=== PATIENT | male | born 1960 | race Caucasian/White ===

== ENCOUNTER 2024-03-23 13:25 | Emergency (ER) | payer MEDICARE, OTHER ==
[~2024-03-23] VITALS: Ht 185.4 cm; Wt 120.3 kg
[2024-03-23] MEDS ORDERED: MELOXICAM7.5 MG PO (15:15)
[2024-03-23] MEDS ORDERED: LEVOTHYROXINE50 MCG PO (15:15)
[2024-03-23] MEDS ORDERED: DIPHTH,PERTUSS(ACELL),TET VAC 0.5 ML SYRINGE IM ONE (15:45)
[2024-03-23 17:14] VITALS: BP 108/68
== END 2024-03-23 17:14 | disposition home or self-care (01) ==
LOC: ED 13:25
DX: S61.212A Laceration without foreign body of right middle finger without damage to nail, initial encounter (principal); E03.9 Hypothyroidism, unspecified; Z23 Encounter for immunization; W26.8XXA Contact with other sharp object(s), not elsewhere classified, initial encounter
CPT/HCPCS: 12001; 99282

== ENCOUNTER 2024-06-11 07:26 | Day surgery (SDC) | payer MEDICARE, OTHER ==
[~2024-06-11 07:26] MED LIST: CEFAZOLIN SODIUM 2 GM/20 ML SYR IV SCH; IBLOOD GLUCOSE TEST STRIP 1 EA TEST VI PRN; IMITREX25 MG PO; LACTATED RINGER'S 1,000 ML IV SCH; LEVETIRACETAM500 M1 PO; LEVOTHYROXINE50 MCG PO; LIDOCAINE HCL 1% 5 ML SDV INJ ONE; MELOXICAM7.5 MG PO; MIDAZOLAM HCL 5 MG/5 ML VIAL IV PRN; NADOLOL40 MG PO; fentaNYL citrate 100 MCG/2 ML VIAL IV PRN
[2024-06-11 07:45] VITALS: BP 109/74
[2024-06-11] MEDS ORDERED: MIDAZOLAM HCL 5 MG/5 ML VIAL ONE (08:42)
[2024-06-11] MEDS ORDERED: fentaNYL citrate 100 MCG/2 ML VIAL ONE (08:43)
--- NOTE | 2024-06-11 10:10 | NUR ---
06/11/24 1010 Sheets,Blanca 0939 PT ARRIVED TO PACU ON 3L VIA NC, PT ASLEEP AND WAKES EASILY. PT REORIENTED TO PACU AND FALLS BACK TO SLEEP. SMALL AMOUNT OF SNORING. 0945 PT PASSING LARGE AMOUNT OF GAS. 1005 PT WAKES AND ROLLED TO BACK, PT SIPPING SODA PER REQUEST.
[2024-06-11 10:17] VITALS: BP 114/80
--- NOTE | 2024-06-11 16:06 | OR ---
[facility] [address], [place] [address] Signed DATE OF OPERATION: 06/11/2024 SURGEON: Lillian Mata MD PREOPERATIVE DIAGNOSIS: Screening colonoscopy. POSTOPERATIVE DIAGNOSES: 1. 4 mm polyps x5 at 7 cm in rectum. 2. 5 mm pedunculated polyp at 110 cm in transverse colon (snare). 3. 7 mm pedunculated polyp at 32 cm in sigmoid colon (snare). 4. Moderate sigmoid diverticulosis. 5. Minimal internal hemorrhoids. PROCEDURE: Colonoscopy with snare polypectomy and hot biopsy. ESTIMATED BLOOD LOSS: None. INDICATIONS: Calvin is a 63-year-old gentleman, asked to see me for his initial screening colonoscopy. He said he was planning to undergo his colonoscopy at age 48 through the [facility] in [place], [place]. He said he was too afraid and he never went. He said he has no lower GI complaints. There is no family history of colon cancer or polyps. He talked about a perforated ulcer in 1984, he was one of the very 1st people to be discovered to have Helicobacter pylori. He said his surgery was done in [place], [place]. In the office, I gave Calvin brochure on colonoscopy. We had reviewed the nature of the test. There is risk including, but not limited to gas bloating, crampy abdominal pain, bleeding, perforation requiring surgery, and missed diagnosis. We also reviewed the written instructions for a bowel prep line by line. He also understands the need for IV conscious sedation. He said his friend will be taking him home afterwards. He had expressed understanding and wished to proceed. DESCRIPTION OF PROCEDURE: Calvin was taken into our endoscopy suite and placed in the left lateral decubitus position. He was given a total of 8 mg of Versed and 150 mcg of fentanyl to cover the case. A digital rectal exam was performed. This was unremarkable. No external hemorrhoids. He had good sphincter tone. There were no masses. The adult colonoscope had been introduced and advanced all around and up next to the cecum. It took some Electronically Signed By: LILLIAN MATA MD 06/11/24 1606 PATIENT NAME: JESUS ALBERTO LANDEROS OPERATIVE REPORT DATE OF : 56 REPORT #: [id number] PHYSICIAN: LILLIAN MATA MD PCP: REBECA OVERTON PA-C REPORT IS CONFIDENTIAL AND NOT TO BE RELEASED WITHOUT AUTHORIZATION [facility] [address], [place] [address] Signed extra sedation and abdominal compression to get the scope to that point. After that, we could not get it to pass directly down into the cecum itself. His prep was moderate. He had some areas of liquid particulate stool matter. Most of that was irrigated and suctioned out. He should increase his bowel prep in the future from one-half gallon of polyethylene glycol up to a one full gallon along with Dulcolax tablets. Upon withdrawal of the scope, we did remove several polyps. We used the snare at the transverse colon and the sigmoid colon. We used our hot biopsy forceps in the rectum. He also has diverticula in the sigmoid colon. They are moderate in size, moderate in number and scattered about. Once in the rectum, the scope had been retroflexed and he has just minimal internal hemorrhoid columns. After this, the gas was suctioned out and the colonoscope removed. Calvin tolerated the procedure quite well. RECOMMENDATIONS: I will see Les in my office in 7 to 14 days to review his results. He needs to increase the bowel prep up to a full gallon of polyethylene glycol along with some Dulcolax tablets. He should consider repeating his colonoscopy here in about 1 to 2 years given his bowel prep and the findings of polyps. Lillian Mata MD ALB/MODL /[id number] cc: RAHUL Valiente [facility] in [place] Lillian Mata MD Copies: LILLIAN MATA MD ~ Electronically Signed By: LILLIAN MATA MD 06/11/24 1606 PATIENT NAME: JESUS ALBERTO LANDEROS OPERATIVE REPORT DATE OF : 56 REPORT #: [id number] PHYSICIAN: LILLIAN MATA MD PCP: REBECA OVERTON PA-C REPORT IS CONFIDENTIAL AND NOT TO BE RELEASED WITHOUT AUTHORIZATION
--- NOTE | 2024-06-13 09:03 | PATH ---
[facility] [address] [facility] [place], [place] [address] Signed SPECIMEN(S): A RECTAL POLYP AT 7 CM SPECIMEN(S): B TRANSVERSE COLON POLYP AT 110 CM SPECIMEN(S): C SIGMOID POLYP AT 32 CM SPECIMEN SOURCE: A. RECTAL POLYP AT 7 CM B. TRANSVERSE COLON POLYP AT 110 CM C. SIGMOID POLYP AT 32 CM CLINICAL HISTORY: Colon screening FINAL PATHOLOGIC DIAGNOSIS: A. Rectum, 7 cm, polypectomy: - Hyperplastic polyp B. Colon, transverse at 110 cm, polypectomy: - Colonic mucosa with no significant pathologic changes C. Colon, sigmoid at 32 cm, polypectomy: - Tubular adenoma BRP MICROSCOPIC EXAMINATION: Histologic sections of all submitted blocks are examined by light microscopy. These findings, together with the gross examination, support the pathologic diagnosis. GROSS DESCRIPTION: A. The specimen, labeled and designated "Degarmo, rectal polyp at 7 cm," is received in formalin and consists of five henderson soft tissue fragments, ranging from 0.1 cm. Entirely submitted in (A1). B. The specimen, labeled and designated "Degarmo, transverse colon polyp at 110 cm," is received in formalin and consists of one henderson soft tissue fragment, 0.2 cm. Entirely submitted in (B1). C. The specimen, labeled and designated "Degarmo, sigmoid colon polyp at 32 cm," is received in formalin and consists of one henderson soft tissue fragment, 0.4 cm. Entirely submitted in (C1). JS (under the direct supervision of a pathologist) The Gross Description was prepared using a voice recognition system. The report was reviewed for accuracy; however, sound-alike word errors, addition and/or deletions may occur. If there is any question about this report, please contact Client Services. PATIENT NAME: JESUS ALBERTO LANDEROS PATHOLOGY DATE OF : 56 REPORT #: [id number] PHYSICIAN: TEODORA GORDILLO PCP: REBECA OVERTON PA-C REPORT IS CONFIDENTIAL AND NOT TO BE RELEASED WITHOUT AUTHORIZATION [facility] [address], [place] [address] Signed ADDITIONAL NOTES: Immunohistochemical and/or in situ hybridization studies if performed in this case included appropriate positive controls that reacted as expected. This test was developed and its performance characteristics determined by [facility]. It has not been cleared or approved by the U.S. Food and Drug Administration. The FDA has determined that such clearance or approval is not necessary. This test is used for clinical purposes. It should not be regarded as investigational or for research. [facility] is certified under the Clinical Laboratory Improvement Amendments of 1988 (CLIA) as qualified to perform high complexity clinical laboratory testing. PERFORMING LABORATORY: Technical component was performed by [facility], [address] [place] [address] (CLIA# [id number]). Professional interpretation was performed by [facility] - [facility], [address] [place] [address] (CLIA#: [id number]). Diagnostician: Jose Roberto Zafar MD Pathologist Electronically Signed 06/13/2024 Copies: ~ PATIENT NAME: JESUS ALBERTO LANDEROS PATHOLOGY DATE OF : 56 REPORT #: [id number] PHYSICIAN: TEODORA PATHOLOGY PCP: REBECA OVERTON PA-C REPORT IS CONFIDENTIAL AND NOT TO BE RELEASED WITHOUT AUTHORIZATION
== END 2024-06-11 10:37 | disposition home or self-care (01) ==
LOC: DS 07:26
PROVIDERS: ATTEND Colon & Rectal Surgery
PROC: 0DBL8ZZ Excision of Transverse Colon, Via Natural or Artificial Opening Endoscopic (ICD-10-PCS; 2024-06-11)
PROC: 0DBN8ZZ Excision of Sigmoid Colon, Via Natural or Artificial Opening Endoscopic (ICD-10-PCS; 2024-06-11)
PROC: 0DBP8ZZ Excision of Rectum, Via Natural or Artificial Opening Endoscopic (ICD-10-PCS; principal; 2024-06-11 09:00)
DX: Z12.11 Encounter for screening for malignant neoplasm of colon (principal); D12.5 Benign neoplasm of sigmoid colon; K62.1 Rectal polyp; K63.5 Polyp of colon; K57.30 Diverticulosis of large intestine without perforation or abscess without bleeding; K64.8 Other hemorrhoids; G43.709 Chronic migraine without aura, not intractable, without status migrainosus; E03.9 Hypothyroidism, unspecified; E66.9 Obesity, unspecified; Z68.34 Body mass index [BMI] 34.0-34.9, adult; Z79.890 Hormone replacement therapy; Z79.899 Other long term (current) drug therapy; Z86.19 Personal history of other infectious and parasitic diseases
CPT/HCPCS: 99153; G0500; J2250; J3010